=== PATIENT | male | born 1930 | race Caucasian/White ===

== ENCOUNTER 2016-09-22 16:35 | Inpatient (IN) | payer OTHER ==
[2016-09-22 17:43] LABS: BASO% 0.5 % (0.0-0.8); EOS# 0.15 X1000 (0.0-0.7); EOS% 2.4 % (0.0-10.0); HEMATOCRIT 32.9 % (42.0-52.0); HEMOGLOBIN 9.3 g/dL (14.0-18.0); IMM GRAN# 0.02 X1000 (0.0-0.04); IMM GRAN% 0.3 % (0.0-0.5); LYMPH# 0.82 X1000 (1.2-3.4); MANUAL DIFF NEEDED? NO; MCH 26.5 PG (27-31); MCHC 28.3 g/dL (33-37); MCV 93.7 FL (81-99); MONO# 0.82 X1000 (0.11-0.59); MPV 10.7 FL (7.4-10.4); NEUT% 70.8 % (42.2-75.2); PLT 135 X1000 (130-400); RBC 3.51 XMIL (4.7-6.1)
[2016-09-22 17:51] LABS: INR 2.08
[2016-09-22 17:57] LABS: PROTIME 22.2 Seconds (9.2-11.7); PTT 42.9 Seconds (22.0-36.0)
[2016-09-22 18:00] LABS: ALBUMIN 2.7 g/dL (3.5-5.0); CALCIUM 8.4 mg/dL (8.8-10.2); POTASSIUM 3.4 mmol/L (3.5-5.1); TOTAL BILIRUBIN 1.2 mg/dL (0.20-1.00); TOTAL PROTEIN 6.2 g/dL (6.3-8.3)
[2016-09-22 18:29] LABS: ALLEN TEST YES; BLOOD TYPE ARTERIAL; DRAW SITE R RADIAL; METHB 1.3 % (0.0-1.5); O2(CT) 13.1 mL/dL (15.0-23.0); PO2(98.6) 229 mmHg (60-100); SAMPLE BLOOD; SAO2 100.2 % (95.0-100.0); THB 9.2 g/dL (11.5-17.4); pH(98.6) 7.25 (7.35-7.45)
[2016-09-22 18:33] LABS: MODALITY CANNULA
[2016-09-22 18:47] LABS: URINE CULTURE NEEDED? NO; URINE MICRO REVIEW NEEDED? NO; URINE SOURCE CATH
[2016-09-22] MEDS ORDERED: LASIX IV ONE (18:48)
[2016-09-22 18:54] LABS: BILIRUBIN URINE NEGATIVE (NEGATIVE); BLOOD URINE SMALL (NEGATIVE); COLOR YELLOW; GLUCOSE URINE NEGATIVE (NEGATIVE); LEUKOCYTES URINE NEGATIVE (NEGATIVE); NITRITE URINE NEGATIVE (NEGATIVE); PROTEIN URINE TRACE mg/dL (NEGATIVE); SP GRAVITY URINE 1.014; TURBIDITY URINE CLEAR (CLEAR); UROBILINOGEN URINE NORMAL (NORMAL)
[2016-09-22 18:56] LABS: UR EPITHELIAL CELLS <10 /HPF (<10); URINE BACTERIA NEGATIVE /HPF; URINE RBC <10 /HPF (<10); URINE WBC <10 /HPF (<10)
[2016-09-22 19:19] LABS: UR AMPHETAMINES QUAL NONE DETECTED (NONE DETECT); UR BARBITUATES QUAL NONE DETECTED (NONE DETECT); UR BENZODIAZEPIN QUAL PRESUMPTIVE POSITIVE (NONE DETECT); UR CANNABINOIDS QUAL NONE DETECTED (NONE DETECT); UR COCAINE QUAL NONE DETECTED (NONE DETECT); UR METHADONE QUAL NONE DETECTED (NONE DETECT); UR OPIATES QUAL NONE DETECTED (NONE DETECT); UR OXYCODONE QUAL NONE DETECTED (NONE DETECT); UR PCP QUAL NONE DETECTED (NONE DETECT)
--- NOTE | 2016-09-22 19:34 | PROVIDER DOCUMENTATION ---
Addendum entered and electronically signed by Eloisa Rutherford Scribe 09/22/16 22: 38: EKG Interpretation - EKG Time of EKG reading by physician:: 17:21 EKG Read and Signed by:: Andrew Low EKG Interpretation (*Must complete 3 of following elements*): Abnormal Rate: 66 Rhythm: a-fib with PVCs or aberrantly conducted complexes [place]: normal Comments: septal infarct, age underermined Original Note: HPI-General Adult - General Source: family, EMS, correction records Unable to obtain history due to:: altered - History of Present Illness -Gen Adult Nature of Presenting Problems: 86 y/o M referred by EMS from his rehab center after they suspected renal failure. Patient is non-communicative and very distressed. His at bedside stated that his condition has been deteriorating for the last few months. He was diagnosed with Afib and was started on anticoagulants which was complicated with Lower GI bleeding. Anticoagulants were stopped and GI bleeding was treated and patient was sent to rehab afterwards, but his condition has been getting worse since. He has a hx of hemorragic stroke, CHF, CABG, HTN, HLD, Afib and LGIB. Severity: reports: severe Onset/Duration: reports: gradual Timing: reports: still present Context/Activities at Onset: reports: none Associated Symptoms: reports: fatigue, shortness of breath, weakness <Yas Jerome - Last Filed: 09/22/16 19:38> <Eloisa Rutherford - Last Filed: 09/22/16 22:35> - General Chief Complaint: Altered Mental Status Stated Complaint: LETHARGIC Time Seen by Provider: 09/22/16 17:17 Allergies/Adverse Reactions: Patient Allergies Allergy/AdvReac Type Severity Reaction Status Date / Time meperidine HCl * AdvReac Unknown Verified 08/22/16 13:01 [From Demerol] Home Medications: Home Medication List Medication Instructions Recorded Confirmed Last Taken Type Carvedilol [Coreg] 6.25 mg PO BID 11/06/14 09/22/16 09/22/16 History SIMVAstatin [Zocor] 20 mg PO QHS 11/06/14 09/22/16 09/22/16 History Ferrous Sulfate [Iron] 325 mg PO BID 09/07/16 09/22/16 09/22/16 History Aspirin 81 mg PO DAILY #0 chewtab 09/13/16 09/22/16 09/22/16 Rx Cetirizine [Zyrtec] 10 mg PO DAILY #0 tablet 09/13/16 09/22/16 09/22/16 Rx Colchicine [Colcrys] 0.6 mg PO BID #28 tablet 09/13/16 09/22/16 09/22/16 Rx Ferrous Sulfate 325 mg PO BID #0 tablet 09/13/16 09/22/16 09/22/16 Rx Furosemide [Lasix] 80 mg PO BID #60 tablet 09/13/16 09/22/16 09/22/16 Rx Furosemide [Lasix] 80 mg PO BID #60 tablet 09/13/16 09/22/16 09/22/16 Rx Spironolactone [Aldactone] 25 mg PO DAILY #30 tablet 09/13/16 09/22/16 09/22/16 Rx Temazepam [Restoril] 7.5 mg PO HS PRN PRN #15 capsule 09/13/16 09/22/16 Rx Tramadol HCl 50 mg PO TID PRN PRN #45 tablet 09/13/16 09/22/16 09/22/16 Rx Brimonidine 0.2% Ophth Soln 1 drop BOTH EYES DAILY 09/22/16 09/22/16 09/22/16 History [Alphagan 0.2% Ophth Soln] Dorzolamide 2% Oph Soln [Trusopt 1 drop BOTH EYES DAILY 09/22/16 09/22/16 History 2% Oph Soln] Latanoprost 0.005% Oph Soln 1 drop BOTH EYES DAILY 09/22/16 09/22/16 09/22/16 History [Xalatan 0.005% Oph Soln] Review of Systems - Adult - REVIEW OF SYSTEMS - ADULT ROS:: unobtainable per condition (Patient is non-communicable. at bedside was not there when he was in rehab.) <Yas Jerome - Last Filed: 09/22/16 19:38> - REVIEW OF SYSTEMS - ADULT Constitutional: reports: no symptoms reported Eyes: reports: no symptoms reported Ears, Nose, Mouth & Throat: reports: no symptoms reported Cardiovascular: reports: no symptoms reported Respiratory: reports: no symptoms reported Gastrointestinal: reports: no symptoms reported Genitourinary: reports: no symptoms reported Musculoskeletal: reports: no symptoms reported Integumentary: reports: no symptoms reported Neurological: reports: no symptoms reported Psychiatric: reports: no symptoms reported Endocrine: reports: no symptoms reported Hematologic/Lymphatic: reports: no symptoms reported Allergic/Immunologic: reports: no symptoms reported All Other Systems: Reviewed and Negative <Eloisa Rutherford - Last Filed: 09/22/16 22:35> Past History - Adult - PAST MEDICAL HISTORY-ADULT Review of Records: reports: Nursing Assessment Review, Medications Reviewed Major Childhood Illnesses: reports: denies history Cardiovascular: reports: A-Fib, CAD, HTN, hyperlipidemia, pacemaker (and defibrillator) Respiratory: reports: denies history Gastrointestinal: reports: GI bleed Neurological: reports: CVA (with hemmorahage) Endocrine/Immune: reports: Diabetes - PRIOR SURGERIES/PROCEDURES Surgical/Procedure History: reports: appendectomy, cholecystectomy, pacemaker, tonsillectomy - IMMUNIZATION STATUS Childhood Immunizations: See Nurse Assessment Flu Vaccine: See Nurse Assessment - FAMILY HISTORY Family History: reviewed, not pertinent <Yas Jerome - Last Filed: 09/22/16 19:38> Physical Exam-General - CONSTITUTIONAL General Appearance: severe distress, obese, obtunded - EYES Eyes: PERRL/EOMI - HEAD, EARS, NOSE, MOUTH & THROAT HENMT: normocephalic/atraumatic - NECK Neck: supple - RESPIRATORY Respiratory: respiratory distress, accessory muscle use - CARDIOVASCULAR Cardiovascular: regular rate, rhythm - GASTROINTESTINAL (ABDOMEN) Abdominal Exam: non tender, soft - GENITOURINARY Male Genitalia: deferred Rectal Exam: deferred - MUSCULOSKELETAL Extremity: calf tenderness, pedal edema - NEUROLOGIC Neurologic: other (Can't be assessed appropriately) - PSYCHIATRIC Psych/Mental Status: disoriented x 3 <Yas Jerome - Last Filed: 09/22/16 19:38> Progress - PLAN OF CARE/RESULTS Progress/Plan/Lab Results: Vital Signs - 24 hr 09/22/16 09/22/16 09/22/16 16:35 17:35 18:25 Temperature 97.4 F L Pulse Rate 67 57 L 56 L Respiratory 24 20 20 Rate Blood Pressure 104/60 172/101 185/89 O2 Sat by Pulse 96 96 91 L Oximetry Laboratory Tests 09/22/16 09/22/16 09/22/16 17:15 17:15 17:15 WBC 6.32 RBC 3.51 L Hgb 9.3 L Hct 32.9 L MCV 93.7 MCH 26.5 L MCHC 28.3 L RDW Std Deviation 24.6 H Plt Count 135 MPV 10.7 H Immature Gran % (Auto) 0.3 Neut % (Auto) 70.8 Lymph % (Auto) 13.0 L [place] % (Auto) 13.0 H Eos % (Auto) 2.4 Baso % (Auto) 0.5 Immature Gran # (Auto) 0.02 Neut # (Auto) 4.48 Lymph # (Auto) 0.82 L [place] # (Auto) 0.82 H Eos # (Auto) 0.15 Baso # (Auto) 0.03 PT INR PTT (Actin FS) Specimen Type Sample Site pH pCO2 pO2 HCO3 Base Excess Oxyhemoglobin ABG O2 Sat (Calculated) ABG O2 Saturation ABG Carboxyhemoglobin ABG Methemoglobin Fuentes Test A-a O2 Difference Total Hemoglobin Lactate Liter Flow Blood Gas Modality FiO2 % Sodium 145 Potassium 3.4 L Chloride 99 Carbon Dioxide 36 H Anion Gap 10 BUN 43 H Creatinine 2.4 H Estimated GFR/1.73 m2 26 BUN/Creatinine Ratio 18 Glucose 113 H Calculated Osmolality 300 Calcium 8.4 L Total Bilirubin 1.20 H AST 25 ALT 13 Alkaline Phosphatase 84 Creatine Kinase 54 Troponin T Total Protein 6.2 L Albumin 2.7 L Globulin 3.5 Albumin/Globulin Ratio 0.8 Plasma Lactate Urine Source Urine Color Urine Turbidity Urine pH Ur Specific [place] Urine Protein Ur Glucose (Stick) Ur Ketones (Stick) Urine Blood Urine Nitrite Urine Bilirubin Urobilinogen Dipstick Urine Leukocytes Urine WBC (Auto) Urine RBC (Auto) U Epithel Cells (Auto) Urine Bacteria (Auto) Urine Opiates Screen Ur Oxycodone Screen Ur Methadone, Qual Ur Barbiturates Screen Ur Phencyclidine Scrn Ur Amphetamines Screen U Benzodiazepines Scrn Urine Cocaine Screen U Cannabinoids Screen Plasma/Serum Ethyl Alc 09/22/16 09/22/16 09/22/16 17:15 17:15 17:15 WBC RBC Hgb Hct MCV MCH MCHC RDW Std Deviation Plt Count MPV Immature Gran % (Auto) Neut % (Auto) Lymph % (Auto) [place] % (Auto) Eos % (Auto) Baso % (Auto) Immature Gran # (Auto) Neut # (Auto) Lymph # (Auto) [place] # (Auto) Eos # (Auto) Baso # (Auto) PT 22.2 H INR 2.08 PTT (Actin FS) 42.9 H Specimen Type Sample Site pH pCO2 pO2 HCO3 Base Excess Oxyhemoglobin ABG O2 Sat (Calculated) ABG O2 Saturation ABG Carboxyhemoglobin ABG Methemoglobin [place] Test A-a O2 Difference Total Hemoglobin Lactate Liter Flow Blood Gas Modality FiO2 % Sodium Potassium Chloride Carbon Dioxide Anion Gap BUN Creatinine Estimated GFR/1.73 m2 BUN/Creatinine Ratio Glucose Calculated Osmolality Calcium Total Bilirubin AST ALT Alkaline Phosphatase Creatine Kinase Troponin T 0.015 Total Protein Albumin Globulin Albumin/Globulin Ratio Plasma Lactate 1.1 Urine Source Urine Color Urine Turbidity Urine pH Ur Specific [place] Urine Protein Ur Glucose (Stick) Ur Ketones (Stick) Urine Blood Urine Nitrite Urine Bilirubin Urobilinogen Dipstick Urine Leukocytes Urine WBC (Auto) Urine RBC (Auto) U Epithel Cells (Auto) Urine Bacteria (Auto) Urine Opiates Screen Ur Oxycodone Screen Ur Methadone, Qual Ur Barbiturates Screen Ur Phencyclidine Scrn Ur Amphetamines Screen U Benzodiazepines Scrn Urine Cocaine Screen U Cannabinoids Screen Plasma/Serum Ethyl Alc 09/22/16 09/22/16 09/22/16 18:25 18:30 18:30 WBC RBC Hgb Hct MCV MCH MCHC RDW Std Deviation Plt Count MPV Immature Gran % (Auto) Neut % (Auto) Lymph % (Auto) [place] % (Auto) Eos % (Auto) Baso % (Auto) Immature Gran # (Auto) Neut # (Auto) Lymph # (Auto) [place] # (Auto) Eos # (Auto) Baso # (Auto) PT INR PTT (Actin FS) Specimen Type ARTERIAL Sample Site R RADIAL pH 7.25 L pCO2 pO2 229 H HCO3 34.3 H Base Excess 12.0 H Oxyhemoglobin 96.5 ABG O2 Sat (Calculated) 13.1 L ABG O2 Saturation 100.2 H ABG Carboxyhemoglobin 2.40 ABG Methemoglobin 1.3 Fuentes Test YES A-a O2 Difference -34.0 Total Hemoglobin 9.2 L Lactate 0.80 Liter Flow 6.0 Blood Gas Modality CANNULA FiO2 % 44.0 Sodium Potassium Chloride Carbon Dioxide Anion Gap BUN Creatinine Estimated GFR/1.73 m2 BUN/Creatinine Ratio Glucose Calculated Osmolality Calcium Total Bilirubin AST ALT Alkaline Phosphatase Creatine Kinase Troponin T Total Protein Albumin Globulin Albumin/Globulin Ratio Plasma Lactate Urine Source CATH Urine Color YELLOW Urine Turbidity CLEAR Urine pH 5.0 Ur Specific [place] 1.014 Urine Protein TRACE A Ur Glucose (Stick) NEGATIVE Ur Ketones (Stick) NEGATIVE Urine Blood SMALL A Urine Nitrite NEGATIVE Urine Bilirubin NEGATIVE Urobilinogen Dipstick NORMAL Urine Leukocytes NEGATIVE Urine WBC (Auto) <10 Urine RBC (Auto) <10 U Epithel Cells (Auto) <10 Urine Bacteria (Auto) NEGATIVE Urine Opiates Screen NONE DETECTED Ur Oxycodone Screen NONE DETECTED Ur Methadone, Qual NONE DETECTED Ur Barbiturates Screen NONE DETECTED Ur Phencyclidine Scrn NONE DETECTED Ur Amphetamines Screen NONE DETECTED U Benzodiazepines Scrn PRESUMPTIVE POSITIVE A Urine Cocaine Screen NONE DETECTED U Cannabinoids Screen NONE DETECTED Plasma/Serum Ethyl Alc - REASSESSMENT Reassessment #1 Time Reassessed: 18:30 Status: unchanged Reassessment Comment: Patient was started on Bipap 12/5/40% for respiratory acidosis - XRAY 1 XRAY Study: Chest Impression: Abnormal (Cardiomegaly- Left pleural effusion - PM placed) - CT/MRI 1 CT Study: Head Impression: Abnormal (No acute pathology. No change from previous CT.) <Yas Jerome. - Last Filed: 09/22/16 19:38> - PLAN OF CARE/RESULTS Progress/Plan/Lab Results: Orders Category Date Time Status Cardiac Monitoring DIRECTED Care 09/22/16 17:28 Active Finger Stick Blood Sugar (ED) DIRECTED Care 09/22/16 17:28 Active Ospina Cath Insertion ORDERED Care 09/22/16 18:18 Active Oxygen Therapy- ED Nursing DIRECTED Care 09/22/16 17:28 Active Saline Loc NOW Care 09/22/16 17:28 Active CHEST-PORTABLE [RAD] Stat Exams 09/22/16 17:28 Taken HEAD W/O CONTRAST [CT] Stat Exams 09/22/16 17:28 Taken ABG [RESP] Routine Lab 09/22/16 18:25 Completed ALCOHOL BLOOD Stat Lab 09/22/16 17:15 Completed CBC WITH ELECTRONIC DIFF [HEME] Stat Lab 09/22/16 17:15 Completed CK PROFILE [SP CHEM] Stat Lab 09/22/16 17:15 Completed COMPREHENSIVE METABOLIC PANEL [CHEM] Stat Lab 09/22/16 17:15 Completed LACTATE, PLASMA [CHEM] Stat Lab 09/22/16 17:15 Completed PROTIME WITH INR [COAG] Stat Lab 09/22/16 17:15 Completed PTT [COAG] Stat Lab 09/22/16 17:15 Completed TROPONIN T Stat Lab 09/22/16 17:15 Completed URINALYSIS W/POSS RFLX CULT [URINALYSIS] Stat Lab 09/22/16 18:30 Completed URINE DRUG SCREEN Stat Lab 09/22/16 18:30 Completed Furosemide [Lasix] Med 09/22/16 18:48 Discontinued 60 mg IV NOW ONE BIPAP Stat Oth 09/22/16 18:48 Active Pulse Oximetry Stat Oth 09/22/16 17:28 Completed EKG [EKG] Stat Ther 09/22/16 17:28 Ordered Laboratory Tests 09/22/16 09/22/16 09/22/16 17:15 17:15 17:15 WBC 6.32 RBC 3.51 L Hgb 9.3 L Hct 32.9 L MCV 93.7 MCH 26.5 L MCHC 28.3 L RDW Std Deviation 24.6 H Plt Count 135 MPV 10.7 H Immature Gran % (Auto) 0.3 Neut % (Auto) 70.8 Lymph % (Auto) 13.0 L [place] % (Auto) 13.0 H Eos % (Auto) 2.4 Baso % (Auto) 0.5 Immature Gran # (Auto) 0.02 Neut # (Auto) 4.48 Lymph # (Auto) 0.82 L [place] # (Auto) 0.82 H Eos # (Auto) 0.15 Baso # (Auto) 0.03 PT INR PTT (Actin FS) Specimen Type Sample Site pH pCO2 pO2 HCO3 Base Excess Oxyhemoglobin ABG O2 Sat (Calculated) ABG O2 Saturation ABG Carboxyhemoglobin ABG Methemoglobin [place] Test A-a O2 Difference Total Hemoglobin Lactate Liter Flow Blood Gas Modality FiO2 % Sodium 145 Potassium 3.4 L Chloride 99 Carbon Dioxide 36 H Anion Gap 10 BUN 43 H Creatinine 2.4 H Estimated GFR/1.73 m2 26 BUN/Creatinine Ratio 18 Glucose 113 H POC Glucose Calculated Osmolality 300 Calcium 8.4 L Total Bilirubin 1.20 H AST 25 ALT 13 Alkaline Phosphatase 84 Creatine Kinase 54 Troponin T Total Protein 6.2 L Albumin 2.7 L Globulin 3.5 Albumin/Globulin Ratio 0.8 Plasma Lactate Urine Source Urine Color Urine Turbidity Urine pH Ur Specific [place] Urine Protein Ur Glucose (Stick) Ur Ketones (Stick) Urine Blood Urine Nitrite Urine Bilirubin Urobilinogen Dipstick Urine Leukocytes Urine WBC (Auto) Urine RBC (Auto) U Epithel Cells (Auto) Urine Bacteria (Auto) Urine Opiates Screen Ur Oxycodone Screen Ur Methadone, Qual Ur Barbiturates Screen Ur Phencyclidine Scrn Ur Amphetamines Screen U Benzodiazepines Scrn Urine Cocaine Screen U Cannabinoids Screen Plasma/Serum Ethyl Alc 09/22/16 09/22/16 09/22/16 17:15 17:15 17:15 WBC RBC Hgb Hct MCV MCH MCHC RDW Std Deviation Plt Count MPV Immature Gran % (Auto) Neut % (Auto) Lymph % (Auto) [place] % (Auto) Eos % (Auto) Baso % (Auto) Immature Gran # (Auto) Neut # (Auto) Lymph # (Auto) [place] # (Auto) Eos # (Auto) Baso # (Auto) PT 22.2 H INR 2.08 PTT (Actin FS) 42.9 H Specimen Type Sample Site pH pCO2 pO2 HCO3 Base Excess Oxyhemoglobin ABG O2 Sat (Calculated) ABG O2 Saturation ABG Carboxyhemoglobin ABG Methemoglobin Fuentes Test A-a O2 Difference Total Hemoglobin Lactate Liter Flow Blood Gas Modality FiO2 % Sodium Potassium Chloride Carbon Dioxide Anion Gap BUN Creatinine Estimated GFR/1.73 m2 BUN/Creatinine Ratio Glucose POC Glucose Calculated Osmolality Calcium Total Bilirubin AST ALT Alkaline Phosphatase Creatine Kinase Troponin T 0.015 Total Protein Albumin Globulin Albumin/Globulin Ratio Plasma Lactate 1.1 Urine Source Urine Color Urine Turbidity Urine pH Ur Specific [place] Urine Protein Ur Glucose (Stick) Ur Ketones (Stick) Urine Blood Urine Nitrite Urine Bilirubin Urobilinogen Dipstick Urine Leukocytes Urine WBC (Auto) Urine RBC (Auto) U Epithel Cells (Auto) Urine Bacteria (Auto) Urine Opiates Screen Ur Oxycodone Screen Ur Methadone, Qual Ur Barbiturates Screen Ur Phencyclidine Scrn Ur Amphetamines Screen U Benzodiazepines Scrn Urine Cocaine Screen U Cannabinoids Screen Plasma/Serum Ethyl Alc 09/22/16 09/22/16 09/22/16 17:47 18:25 18:30 WBC RBC Hgb Hct MCV MCH MCHC RDW Std Deviation Plt Count MPV Immature Gran % (Auto) Neut % (Auto) Lymph % (Auto) [place] % (Auto) Eos % (Auto) Baso % (Auto) Immature Gran # (Auto) Neut # (Auto) Lymph # (Auto) [place] # (Auto) Eos # (Auto) Baso # (Auto) PT INR PTT (Actin FS) Specimen Type ARTERIAL Sample Site R RADIAL pH 7.25 L pCO2 pO2 229 H HCO3 34.3 H Base Excess 12.0 H Oxyhemoglobin 96.5 ABG O2 Sat (Calculated) 13.1 L ABG O2 Saturation 100.2 H ABG Carboxyhemoglobin 2.40 ABG Methemoglobin 1.3 Fuentes Test YES A-a O2 Difference -34.0 Total Hemoglobin 9.2 L Lactate 0.80 Liter Flow 6.0 Blood Gas Modality CANNULA FiO2 % 44.0 Sodium Potassium Chloride Carbon Dioxide Anion Gap BUN Creatinine Estimated GFR/1.73 m2 BUN/Creatinine Ratio Glucose POC Glucose 121 H Calculated Osmolality Calcium Total Bilirubin AST ALT Alkaline Phosphatase Creatine Kinase Troponin T Total Protein Albumin Globulin Albumin/Globulin Ratio Plasma Lactate Urine Source CATH Urine Color YELLOW Urine Turbidity CLEAR Urine pH 5.0 Ur Specific [place] 1.014 Urine Protein TRACE A Ur Glucose (Stick) NEGATIVE Ur Ketones (Stick) NEGATIVE Urine Blood SMALL A Urine Nitrite NEGATIVE Urine Bilirubin NEGATIVE Urobilinogen Dipstick NORMAL Urine Leukocytes NEGATIVE Urine WBC (Auto) <10 Urine RBC (Auto) <10 U Epithel Cells (Auto) <10 Urine Bacteria (Auto) NEGATIVE Urine Opiates Screen Ur Oxycodone Screen Ur Methadone, Qual Ur Barbiturates Screen Ur Phencyclidine Scrn Ur Amphetamines Screen U Benzodiazepines Scrn Urine Cocaine Screen U Cannabinoids Screen Plasma/Serum Ethyl Alc 09/22/16 18:30 WBC RBC Hgb Hct MCV MCH MCHC RDW Std Deviation Plt Count MPV Immature Gran % (Auto) Neut % (Auto) Lymph % (Auto) [place] % (Auto) Eos % (Auto) Baso % (Auto) Immature Gran # (Auto) Neut # (Auto) Lymph # (Auto) [place] # (Auto) Eos # (Auto) Baso # (Auto) PT INR PTT (Actin FS) Specimen Type Sample Site pH pCO2 pO2 HCO3 Base Excess Oxyhemoglobin ABG O2 Sat (Calculated) ABG O2 Saturation ABG Carboxyhemoglobin ABG Methemoglobin Fuentes Test A-a O2 Difference Total Hemoglobin Lactate Liter Flow Blood Gas Modality FiO2 % Sodium Potassium Chloride Carbon Dioxide Anion Gap BUN Creatinine Estimated GFR/1.73 m2 BUN/Creatinine Ratio Glucose POC Glucose Calculated Osmolality Calcium Total Bilirubin AST ALT Alkaline Phosphatase Creatine Kinase Troponin T Total Protein Albumin Globulin Albumin/Globulin Ratio Plasma Lactate Urine Source Urine Color Urine Turbidity Urine pH Ur Specific [place] Urine Protein Ur Glucose (Stick) Ur Ketones (Stick) Urine Blood Urine Nitrite Urine Bilirubin Urobilinogen Dipstick Urine Leukocytes Urine WBC (Auto) Urine RBC (Auto) U Epithel Cells (Auto) Urine Bacteria (Auto) Urine Opiates Screen NONE DETECTED Ur Oxycodone Screen NONE DETECTED Ur Methadone, Qual NONE DETECTED Ur Barbiturates Screen NONE DETECTED Ur Phencyclidine Scrn NONE DETECTED Ur Amphetamines Screen NONE DETECTED U Benzodiazepines Scrn PRESUMPTIVE POSITIVE A Urine Cocaine Screen NONE DETECTED U Cannabinoids Screen NONE DETECTED Plasma/Serum Ethyl Alc Vital Signs - 24 hr 09/22/16 09/22/16 09/22/16 16:35 17:35 18:25 Temperature 97.4 F L Pulse Rate 67 57 L 56 L Respiratory 24 20 20 Rate Blood Pressure 104/60 172/101 185/89 O2 Sat by Pulse 96 96 91 L Oximetry 09/22/16 20:23 Temperature Pulse Rate 69 Respiratory 22 Rate Blood Pressure 83/61 O2 Sat by Pulse 100 Oximetry Pt/family given results. Pt will be admitted to the hospitalist group. PT/ Family in agreement with plan of care. - CONSULTS/PCP/HOSPITALIST Notification #1 *Consult/PCP/Hospitalist*: Dr. Gonsalves Time Discussed: 20:49 Consult Disposition: Will see in ED, Admit <Eloisa Rutherford - Last Filed: 09/22/16 22:35> Departure <Yas Jerome - Last Filed: 09/22/16 19:38> - Departure Time of Disposition Order: 21:31 Certified Medical Emergency: Emergent <Eloisa Rutherford - Last Filed: 09/22/16 22:35> - Departure DIAGNOSIS: Generalized weakness Disposition: ADMITTED INPATIENT 09 Condition: Stable Attestation - Scribe Verification/Attestation #2 Shift Change Time: 19:00 Scribe Name: KrishEloisa Acting as Scribe for:: Andrew Low <Eloisa Rutherford - Last Filed: 09/22/16 22:35> Physician Attestation - Physician Attestation I, the provider, attest to the following statement:: Andrew Low Physician documentation Attestation:: This documentation recorded by the scribe accurately reflects the service I personally performed and the decisions made by me. <Eloisa Rutherford - Last Filed: 09/22/16 22:35>
[2016-09-22] MEDS ORDERED: KLOR-CON PO ONE (21:59)
[2016-09-22] MEDS ORDERED: HUMALOG SUBQ ONE (22:14)
--- NOTE | 2016-09-22 23:01 | HISTORY AND PHYSICAL ---
REFERRING PHYSICIAN: Roddy Rodríguez MD REASON FOR ADMISSION: Progressive weakness and confusion for the last 3-4 days. HISTORY OF PRESENT ILLNESS: Mr. Eduardo Nielsen is an 86-year-old man with past medical history of chronic atrial fibrillation, coronary artery disease, chronic diastolic congestive heart failure, hypertension, peripheral artery disease, type 2 diabetes, stage 3 kidney disease, gout, history of prior hemorrhagic stroke with mild residual dementia, obstructive sleep apnea. He has a defibrillator and pacemaker placed because of atrial fibrillation. [facility] on account of progressive weakness for the last 3-4 days and worsening confusion for the last 2 days. 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 Since he has been at the rehab facility, he has been having intermittent diarrhea which has been persistent up until today. The diarrhea is nonbloody, but the initially thought that this was secondary to iron tablets prescribed by Dr. Rodríguez, but since they withheld his iron tablets, he is still having the diarrhea. is not sure if he has had any recent antibiotic exposure or any contact with anybody with any diarrhea. She has noticed that he has become a little more lethargic and weak and has been unable to undergo any physical therapy. Patient is a very poor historian due to the fact that he is very lethargic and confused at this point in time. He will follow basic commands, however. No genitourinary complaints per the and no hematuria noted. No acute shortness of breath reported by the patient or chest pain by the patient. His reports that he has chronic lower extremity swelling, but no more than usual. No nausea or vomiting reported. REVIEW OF SYSTEMS: Twelve system review is negative, but limited due to the fact that the patient is confused. ALLERGIES: He is allergic to Demerol and erythromycin. SURGICAL HISTORY: Two coronary artery bypass surgeries. Pacemaker and defibrillator replacement. CEA on the right side. Appendectomy and cholecystectomy. FAMILY HISTORY: Patient was an only child and mother had brain cancer. Dad did not have any heart disease or diabetes per the . SOCIAL HISTORY: He is not actively smoking, stopped in . Does not drink alcohol or use any recreational drugs. He is . Currently residing at a rehab facility i.[facility]. HOME MEDICATION: Coreg 6.25 b.i.d. Zocor 20 mg at bedtime. Iron 225 mg b.i.d. Brimonidine ophthalmic solution 0.2%, 1 drop to both eyes. Dorzolamide 1 drop to both eyes. Latanoprost or i.e. Xalatan 1 drop to both eyes. Restoril 7.5 mg at bedtime p.r.n. Tramadol 50 mg t.i.d. Aldactone 25 mg daily. Aspirin 81 mg daily. Colchicine 0.6 mg b.i.d. Ferrous sulfate 325 mg b.i.d. Lasix 80 mg b.i.d. Zyrtec 10 mg daily. LABORATORY WORK/RADIOLOGY: Chest x-ray shows left pleural effusion with cardiomegaly. CT head was negative for any acute process. White count 6000, hemoglobin and hematocrit 9 and 32. Platelets 135,000. Potassium 3.4, BUN 43, creatinine 2.4, glucose 113. Calcium 8.4, total bilirubin 1.2, troponin 0.5. Lactate 1.1. Albumin 2.7. PT 22, INR 2, PTT 42, urine drug screen positive for benzodiazepines. Urinalysis: Small blood, trace protein. Arterial blood gases 7.25, pCO2 95, PO2 229. And this was on 44% nasal cannula. PHYSICAL EXAMINATION: GENERAL: Elderly man who is alert, but confused. His speech is very whispery, very difficult to hear. VITAL SIGNS: His blood pressure is 185/89, heart rate 66, respirations 20, temperature is 97.4 degrees, and is on 3 L. HEENT: Head is normocephalic, atraumatic. Eyes [place], EOMI. He is calm, not anxious. He is anicteric and not pale. ENT and oropharyngeal examination is limited due to the fact the patient is a BiPAP mask, but visually, no central cyanosis. NECK: No visible JVD. No bruit or thyromegaly. Positive hepatojugular reflux. CHEST: Decreased air entry in both lung levin with questionable scattered wheezes. CARDIOVASCULAR: First and second heart sounds heard. No gallops, murmurs, rubs. Rhythm is regular. ABDOMEN: Protuberant, soft. Mild diffuse tenderness noted, but no rebound or guarding. Bowel sounds are hypoactive. RECTAL: Not done at this time. EXTREMITIES: Patient has noticeable bilateral xerosis of both feet with 1+ pitting edema. Pulses distally are diminished in the lower extremity, but symmetrical compared to the upper extremity. No clubbing or peripheral cyanosis. NEUROLOGICAL: The patient has fine tremors in his hands. No myoclonus noted. No focal deficits appreciated. SKIN: See above regarding xerosis of the lower extremities. MUSCULAR: Exam otherwise is within normal limits. ASSESSMENT: 1. Metabolic encephalopathy secondary to uremia and hypercapnia. 2. Acute on chronic respiratory failure with hypercapnia. 3. Acute on chronic kidney disease. 4. Anemia multifactorial i.e. combination of underlying kidney disease plus pre-existing hemorrhagic anemia from recent gastrointestinal bleed. 5. Subacute diarrhea, etiology to be determined. Rule out infectious etiology. Clostridium difficile toxin is pending. 6. Chronic diastolic heart failure. Appears to be stable. 7. Coronary artery disease. 8. Chronic atrial fibrillation. 9. Hypertension. 10. Peripheral artery disease. 11. Type 2 diabetes. 12. Gouty arthritis. PLAN: I suspect patient's acute on chronic renal failure could be secondary to several factors, namely poor oral intake, excessive diuresis in the face of poor oral intake, use of nephrotoxic medications i.e. diuretics and colchicine with ongoing diarrhea. We will withhold intravenous fluid resuscitation, discontinue diuretics and see how his renal function progresses. If it continues to progress in a downward trend, we will consider cautious use of intravenous fluids. Stool studies need to be evaluated in this patient to be sure he does not have Clostridium difficile. If this is negative, then we can administer antidiarrheals to decrease further fluid losses. Regarding patient's hypercapnia, patient will be on a BiPAP. He does have prior history of sleep apnea by the way. We will check an arterial blood gases later today and consult certification engineer to see. He possibly may have a component of subclinical chronic obstructive pulmonary disease and I have started him on breathing treatments. The patient has been made Do Not Resuscitate due to his overall poor prognosis. I have ordered an anemia workup to see if he may benefit from intravenous iron as the is concerned that oral iron may have triggered his poor oral intake and caused his diarrhea which I find somewhat unusual. Also of note, patient also has some degree of coagulopathy. I do not see any Coumadin on board for this patient, even in his prior history and physical. I do think I will stop his aspirin and avoid any heparinoids products for deep venous thrombosis prophylaxis and use Sequential Compression Devices in place. Repeat ProTime in the a.m. and if it is high then we need to consider possibility of vitamin K deficiency from possible chronic antibiotic use and try to give the patient vitamin K supplementation if this is still elevated. Regarding his diabetes, we will put him on a low sliding scale. Check his A1c.
[2016-09-22] MEDS ORDERED: TYLENOL PO PRN (23:24)
[2016-09-22] MEDS ORDERED: ZOFRAN IV PRN (23:24)
[2016-09-22] MEDS: DUONEB (A & A) INH SCH (23:44)
[2016-09-23 00:03] LABS: HEMOGLOBIN A1C 5.5 % (4.8-6.0)
[2016-09-23] MEDS: DUONEB (A & A) INH SCH ×4 (03:57→19:28)
[2016-09-23 04:24] LABS: ALLEN TEST YES; BLOOD TYPE ARTERIAL; DRAW SITE R RADIAL; METHB 1.4 % (0.0-1.5); PO2(98.6) 91 mmHg (60-100); SAMPLE BLOOD; SAO2 98.7 % (95.0-100.0); THB 9.6 g/dL (11.5-17.4); pH(98.6) 7.36 (7.35-7.45)
[2016-09-23 04:25] LABS: PCO2(98.6) 68 mmHg (35-45)
[2016-09-23 04:26] LABS: MODALITY BI PAP
--- NOTE | 2016-09-23 05:27 | EKG Report ---
Test Performed on : 09/22/2016 5:21:18 PM Test Reason : AMS Blood Pressure : / mmHG Vent. Rate : 066 BPM Atrial Rate : 043 BPM P-R Int : 000 ms QRS Dur : 112 ms QT Int : 456 ms P-R-T Axes : 000 046 099 degrees QTc Int : 478 ms Atrial fibrillation. with premature ventricular or aberrantly conducted complexes. Septal infarct , age undetermined Abnormal ECG No previous ECGs available Unconfirmed Result
[2016-09-23 05:33] LABS: INR 2.18; PROTIME 23.3 Seconds (9.2-11.7)
[2016-09-23 05:38] LABS: BASO% 0.8 % (0.0-0.8); EOS# 0.22 X1000 (0.0-0.7); EOS% 3.6 % (0.0-10.0); HEMATOCRIT 30.5 % (42.0-52.0); HEMOGLOBIN 8.6 g/dL (14.0-18.0); IMM GRAN# 0.04 X1000 (0.0-0.04); IMM GRAN% 0.6 % (0.0-0.5); LYMPH# 0.75 X1000 (1.2-3.4); LYMPH% 12.2 % (20.5-51.1); MANUAL DIFF NEEDED? NO; MCH 26.1 PG (27-31); MCHC 28.2 g/dL (33-37); MCV 92.4 FL (81-99); MONO# 0.83 X1000 (0.11-0.59); MONO% 13.5 % (1.7-9.3); MPV 11.4 FL (7.4-10.4); NEUT% 69.3 % (42.2-75.2); PLT 134 X1000 (130-400)
[2016-09-23 06:03] LABS: ALBUMIN 2.3 g/dL (3.5-5.0); CALCIUM 8.4 mg/dL (8.8-10.2); POTASSIUM 3.3 mmol/L (3.5-5.1); TOTAL BILIRUBIN 1.41 mg/dL (0.20-1.00); TOTAL PROTEIN 5.9 g/dL (6.3-8.3)
--- NOTE | 2016-09-23 08:27 | Diag Imaging Result Document ---
PROCEDURE NAME: HEAD W/O CONTRAST - 09/22/2016 CT HEAD WITHOUT CONTRAST: COMPARISON: 08/22/2016. FINDINGS: There is extensive patchy low attenuation in the periventricular and subcortical white matter suggesting microangiopathy, stable. There is stable left frontal encephalomalacia. There is no definite acute infarct given the limited sensitivity of CT versus MRI. There is no discrete intracranial mass, mass effect, or intracranial hemorrhage. There is stable diffuse brain atrophy. The surrounding soft tissues and bony structures are essentially unremarkable. IMPRESSION: Stable chronic changes but no evidence of acute intracranial pathology.
[2016-09-23] MEDS: FERROUS SULFATE PO SCH (08:34)
[2016-09-23] MEDS: COREG PO SCH ×2 (08:34→21:15)
[2016-09-23] MEDS: ALPHAGAN 0.2% OPHTH SOLN BOTH EYES SCH (08:34)
[2016-09-23] MEDS: TRUSOPT 2% OPH SOLN BOTH EYES SCH (08:35)
--- NOTE | 2016-09-23 08:37 | Diag Imaging Result Document ---
PROCEDURE NAME: CHEST-1 VIEW - 09/23/2016 PORTABLE CHEST X-RAY: COMPARISON: 09/22/2016. FINDINGS: Stable pacemaker and cardiomegaly. Stable pulmonary vascular congestion. No obvious infiltrates. There are probably pleural effusions. IMPRESSION: No change from prior.
[2016-09-23] MEDS ORDERED: XALATAN 0.005% OPH SOLN BOTH EYES SCH (09:00)
--- NOTE | 2016-09-23 09:21 | Diag Imaging Result Document ---
PROCEDURE NAME: CHEST-PORTABLE - 09/22/2016 PORTABLE CHEST X-RAY: 09/22/2016. COMPARISON: 09/11/2016. FINDINGS: Stable pacemaker. Stable cardiomegaly. Stable pulmonary vascular congestion. There are bilateral pleural effusions, left greater than right. IMPRESSION: No change from prior.
[2016-09-23] MEDS ORDERED: NS 500 ML IV ONE (09:30)
[2016-09-23] MEDS ORDERED: VITAMIN K 10 MG in NS 50 ML IV ONE (10:00)
[2016-09-23 10:35] LABS: PCO2(98.6) 95 mmHg (35-45)
[2016-09-23 10:39] LABS: ALLEN TEST YES; BE 11.4 mmoll (-3.0-3.0); BLOOD TYPE ARTERIAL; DRAW SITE R RADIAL; METHB 1.8 % (0.0-1.5); O2(CT) 11.8 mL/dL (15.0-23.0); PO2(98.6) 157 mmHg (60-100); SAMPLE BLOOD; SAO2 99.8 % (95.0-100.0); THB 8.5 g/dL (11.5-17.4); pH(98.6) 7.29 (7.35-7.45)
[2016-09-23 10:40] LABS: MODALITY CANNULA; PCO2(98.6) 83 mmHg (35-45)
--- NOTE | 2016-09-23 12:28 | CONSULTATION ---
DATE OF CONSULTATION: 09/23/2016 PHYSICIAN REQUESTING CONSULTATION: Roddy Rodríguez MD REASON FOR CONSULTATION: Patient with known coronary artery disease presenting to the hospital with suspected gastrointestinal bleeding and mental status changes. HISTORY OF PRESENT ILLNESS: Mr. Nielsen is an unfortunate 86-year-old male who carries the diagnosis of coronary artery disease. He was admitted to [facility] on 09/07/2016 through 09/13/2016 after being found to have gastrointestinal bleeding. Of note , a few days prior to that the patient had suffered an episode of a shock delivered by his ICD device on 08/22/2016. At that time he fell on the floor, however, he did not lose consciousness. The patient at any rate was admitted on 09/07/2016. He was seen by Dr. Wilson from the gastroenterology service and they on 09/09/2016 proceeded to perform an endoscopy with the finding of an arteriovenous malformation that was bleeding and it was treated. The patient was discharged to [facility] on 09/13/2016. He has been staying there up until yesterday. Yesterday, he was brought to the hospital emergency room at about 7:00 p.m. because he appeared to be very restless, he appeared to be in some distress, and he was nonverbal. The patient has been admitted for further management. He was found to have elevation of his pCO2 on blood gases; it was 95 and pH was 7.27 and pO2 229. His BUN was up to 43 with creatinine of 2.4. Before his discharge his BUN was 22 and his creatinine was 1.5. He also had a chest x-ray on 09/22/2016 indicating bilateral pleural effusions, left greater than right. Additional blood work includes a troponin level that was checked and is negative. The patient at this time is nonverbal. He is moaning some, when one touches his knees they are somewhat sore to touch. The patient carries the diagnosis of gout. The states that he has not experienced any recent change in his cardiac status. He has some chronic mild puffiness of the ankles. He normally does not complain of chest pain. He denies having palpitations. PAST MEDICAL/SURGICAL HISTORY: His past history is positive for severe coronary artery disease. He has had open heart surgery twice; the last time was done in October of 1995 and consisted of a free right mammary artery to the marginal branch of the circumflex and the OLSON to the LAD performed by Dr. Salter in [place]. Subsequently he had a heart cath in June of [address] Plascencia that showed a stenosis of the marginal branch beyond the anastomosis of the mammary graft and he proceeded to perform a stent. He had a follow-up PET scan in January of [address] Valladares as abnormal indicating a mid anterolateral and apical anterior scar without evidence of ischemia. His ejection fraction could not be calculated at that time because of ventricular ectopy. The last time he was seen by Dr. Gregorio, who is his usual personalized living manager, was in January of 2016 and at that time he appeared to be stable. The patient has chronic atrial fibrillation and he has been on long-term anticoagulation with warfarin, however, due to the episode of gastrointestinal bleeding this has been discontinued. The patient had a previous episode of a catastrophic intracranial bleed in 1998 that required ventriculostomy /craniotomy. Since then his memory was affected. He has a history of being a borderline diabetic. He has had deep venous thrombosis in the past. He carries the diagnosis of sleep apnea syndrome. He has been obese with a body mass index of 37. He has been diagnosed with gout and this has affected recently his left hand requiring colchicine. He has had an appendectomy, cholecystectomy, and tonsillectomy. The patient has also had a carotid endarterectomy in the past. SOCIAL HISTORY: He is to his second of 22 years. He has 2 children. He is not a smoker. He quit smoking several years ago. 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 He was very good at [employer]. FAMILY HISTORY: Noncontributory. HOME MEDICATIONS: His home medications at this time include aspirin 81 mg daily , tramadol 50 mg three times a day, temazepam 7.5 at bedtime, spironolactone 25 mg daily, simvastatin 20 mg at bedtime, furosemide 80 mg twice a day, ferrous sulfate 325 mg twice a day, eye drops dorzolamide or Trusopt one drop to both eyes daily, colchicine 0.6 mg twice a day, Zyrtec 10 mg daily, and carvedilol 6.25 mg twice daily. ALLERGIES: He has allergies to meperidine. REVIEW OF SYSTEMS: Basically positive for poor functional capacity. He walks with a walker barely. He lives at the [facility] with his and since his recent episode of gastrointestinal bleeding he has been at [facility]. He has never tolerated wearing a CPAP mask. PHYSICAL EXAMINATION: VITAL SIGNS: Blood pressure is 122/59, pulse 60, temperature 98.1, and respirations 14. GENERAL: He is obtunded. He does not wake up to commands. He moans when one touches his joints. HEENT: I cannot really see the uvula veins. I do not hear bruits. RESPIRATORY: The chest shows diminished breath sounds at the bases. I do not hear any definite rales. Occasional end-expiratory wheezing. CARDIOVASCULAR: Heart sounds are regular rhythmic. No definite gallop or murmur is noted. ABDOMEN: Obese. No hepatomegaly. Slightly distended. Nontender. EXTREMITIES: Extreme dryness of both feet/swelling, brawny edema. Pulses are diminished. NEUROLOGICAL: He is very obtunded and does not follow commands. He is somewhat flaccid. LABORATORY DATA: Sodium is 146, potassium 3.3, BUN 44, and creatinine 2.3. White count is 6,160 and hemoglobin 8.6. IMPRESSION: 1. Patient presented to the hospital because of mental status changes with hypercarbic respiratory failure and evidence of dehydration with acute renal dysfunction. 2. Patient has a history of severe coronary artery disease with previous vessel bypass in 1998 with subsequent stent to the marginal branch of the circumflex in 2007. 3. History of chronic atrial fibrillation on long-term anticoagulation with controlled rate. 4. History of implantable cardioverter defibrillator implantation with a recent episode of ventricular fibrillation from which he was successfully shocked in August of 2016. 5. Status-post carotid endarterectomy. 6. Anemia and recent gastrointestinal bleeding. RECOMMENDATION: From a cardiology viewpoint at this time I do not have any specific recommendations. The patient really needs to be given general medical care to optimize his electrolytes and his respiratory status. From cardiology I really do not have any specific therapeutic intervention to suggest. We will be available if there is any change that really warrants our intervention. Please call us if we can be of any further assistance. [facility]
[2016-09-23] MEDS: VANCOMYCIN ORAL SOLN PO SCH ×3 (12:37→21:13)
--- NOTE | 2016-09-23 12:41 | CONSULTATION ---
DATE OF CONSULTATION: 09/23/2016 CONCLUSIONS: The patient has a 3-week history of diarrhea. According to his , it started after he received an iron infusion, and he was in either a rehab facility or the hospital. The patient's stool for Clostridium difficile toxin is negative. RECOMMENDATIONS: I have ordered stools for ova and parasites and for culture. Pending these results, I have placed the patient on vancomycin, even though his stool for Clostridium difficile toxin is negative. DISCUSSION: The patient is unable to provide a history; the history was taken from the patient's . The patient had been in rehab and develops diarrhea that has been present according to the patient's for 3 weeks. He has gotten progressively weaker to the point that he can barely talk. He can barely move his arms and legs. The history was taken from the as the patient was not strong enough to answer. His studies thus far show a CBC with a white count of 6160, hemoglobin 8.6 and platelet count 134,000. The arterial blood gases show a pH of 7.36, a PO2 of 91 and a pCO2 of 68. Patient's creatinine is 2.3. The GFR is 27. Liver function studies are normal, except for a bilirubin of 1.41. Stool for Clostridium difficile toxin is negative. CT scan of the head showed no acute disease. Chest x-ray shows the patient has a pacemaker, cardiomegaly, and pulmonary venous congestion with probable pleural effusions. The patient's told me that the Imodium and Lomotil had been tried on the patient, but it did not seem to help his diarrhea. PAST MEDICAL HISTORY/REVIEW OF SYSTEMS: The review of systems was taken from the patient's .Eyes and ears: The patient did not have loss of hearing or vision. Neck: No stiffness. Respiratory: No cough or shortness of breath. Cardiovascular: No chest pain or palpitations. GI: As mentioned above, patient has been having diarrhea for 3 weeks now. He is not having nausea or vomiting. The patient also had a loss of appetite in the past 2-3 weeks. Genitourinary: No history of dysuria or flank pain. Neurologic: The patient is very weak. He can barely speak and, when he did try to speak now no words came out. In the past according to the the patient was active; he did walk, but required the use of a walker. The remainder of the review of systems was completed and was negative. SURGICAL HISTORY: Positive for coronary artery bypass surgery, placement of a combination pacemaker and defibrillator. Carotid end arterectomy, on the right side. Appendectomy, cholecystectomy and extraction of all the patient's teeth. MEDICAL DISEASES: Positive for atrial fibrillation, coronary artery disease, congestive heart failure, hypertension, peripheral arterial disease, diabetes mellitus, stage III kidney disease, gout, prior hemorrhagic stroke with mild residual dementia, obstructive sleep apnea, placement of a combination defibrillator and pacemaker occurred because of the patient's atrial fibrillation. ALLERGIES: Patient's chart lists only an allergy to Demerol. HOME MEDICATIONS: Consist of the following: Tramadol, Restoril, Aldactone, Zocor, Lasix, iron, colchicine, Zyrtec, Coreg and aspirin. FAMILY HISTORY: Positive for brain cancer. No history of heart disease or diabetes. SOCIAL HISTORY: The patient stopped smoking cigarettes in 1991. He does not drink alcohol or use any recreational drugs. He is . He most recently was in a rehab facility at [facility]. HOME MEDICATIONS: Coreg, Zocor, iron, Brimonidine ophthalmic solution, Latanoprost eyedrops, Restoril, tramadol, Aldactone, aspirin, colchicine, ferrous sulfate, Lasix and Zyrtec. PHYSICAL EXAMINATION: Vital Signs: Temperature is 98.1 degrees, pulse 56, respirations 20, blood pressure 122/59. This is the patient weighs 249 pounds. General: This is a chronically ill- appearing, elderly male, who is very lethargic. Head, eyes, ears, nose, and throat: He heard my spoken words as evidenced by the fact that I asked him to move his extremities and he did, even though he could barely move them because he was so weak. No drainage is noted from the nose or ears. Neck: No meningismus. Thorax: There was an increased AP diameter to the chest. Lungs: There were bibasilar rales. Cardiovascular: Heart tones were distant. It appeared to me that it was regular, but as I said it was very distant. The patient had bilateral leg edema. Abdomen: Soft and nontender. Neurologic: The patient is lethargic. He did follow requests to move his extremities. There was no tremor. Thank you for the consult.
--- NOTE | 2016-09-23 16:55 | CONSULTATION ---
DATE OF CONSULTATION: 09/23/2016 REQUESTING PHYSICIAN: Dr. Rodríguez. REASON FOR CONSULTATION: Respiratory failure. HISTORY OF PRESENT ILLNESS: Mr. Nielsen is an 86-year-old white male with prior tobacco use, COPD, morbid obesity, noncompliance with treatment for obstructive sleep apnea who was admitted to the hospital earlier this month with anemia. The patient was treated for an AV malformation and transferred to the correction. The patient has had periods of hypersomnolence, presented to the emergency room last evening. The patient was lethargic. Arterial blood gas was performed which revealed pH 7.25, pCO2 of 95, PO2 of 229 on nasal cannula. Head CT was performed which revealed stable changes from prior stroke with left frontal encephalomalacia along with evidence of microvascular disease. PAST MEDICAL HISTORY: 1. Obstructive sleep apnea. The patient did not tolerate CPAP/BiPAP in the past. 2. COPD. 3. Coronary artery disease. 4. Diastolic heart failure. 5. Chronic renal insufficiency. 6. Atrial fibrillation. 7. Hypertension. 8. Dyslipidemia. 9. Type 2 diabetes mellitus. 10. Chronic kidney failure. 11. Arthritis. 12. Prior stroke as per HPI. 13. Chronic hypoxemic respiratory failure. 14. Status post pacemaker/defibrillator placement. 15. Status post appendectomy. 16. Status post cholecystectomy. SOCIAL HISTORY: The patient has a 60 pack year history for tobacco. No alcohol use. FAMILY HISTORY: Noncontributory to current presentation. REVIEW OF SYSTEMS: Limited. PHYSICAL EXAMINATION: General: Reveals a chronically ill-appearing male who is struggling with BiPAP. Vital Signs: BP 94/49, heart rate 21, respiration rate 16, oxygen saturation 98%. HEENT: Pupils are equal and reactive. Oropharynx evaluation is limited. Neck: Supple. Chest: Reveals diminished breath sounds both lung bases. Cardiac Exam: Distant heart sounds. Irregular rhythm. Abdomen: Is obese and soft. Extremities: Reveal some wrinkling of the skin suggesting recent diuresis. LABORATORIES: Arterial blood gas reveals pH 7.29, pCO2 of 83, PO2 of 157. Chemistry. Sodium 146, potassium 3.3, chloride 100, BUN 35, creatinine 2.3, BUN 44. Chest x-ray reveals cardiomegaly, pleural effusions and stable vascular congestion. IMPRESSION: An 86-year-old with chronic hypoxemic respiratory failure who presents with acute on chronic hypoxemic respiratory failure. Respiratory failure is likely multifactorial and related to underlying chronic obstructive pulmonary disease, obstructive sleep apnea, and mild fluid overload. Unfortunately, with renal insufficiency and mild hypotension, he will not likely tolerate diuresis. He clearly has had a downhill clinical course over the last month. His reports he does not want to be placed on mechanical ventilation but he currently is a full code. It is hoped that with cycling BiPAP he will have some clinical improvement. However, this likely be short term if he cannot tolerate nocturnal CPAP/BiPAP. RECOMMENDATION: 1. Continue BiPAP for acute hypercapnic and hypoxemic respiratory failure. Recommend cycling BiPAP if he has clinical improvement. 2. Attempt diuretics if he has improvement in blood pressure. 3. Stool evaluation by the infectious disease service for diarrhea. 4. Recommend palliative care consult to discuss end of life/goals of care. 5. Additional recommendations pending hospital course.
[2016-09-23] MEDS: XALATAN 0.005% OPH SOLN BOTH EYES SCH (21:14)
[2016-09-24] MEDS ORDERED: CALMOSEPTINE OINTMENT TOP PRN (00:26)
[2016-09-24] MEDS: VANCOMYCIN ORAL SOLN PO SCH ×4 (01:44→20:29)
[2016-09-24] MEDS: DUONEB (A & A) INH SCH ×4 (03:54→20:07)
[2016-09-24 04:38] LABS: ALLEN TEST YES; BE 12.3 mmoll (-3.0-3.0); BLOOD TYPE ARTERIAL; DRAW SITE R RADIAL; METHB 1.4 % (0.0-1.5); MODALITY BI PAP; O2(CT) 14.1 mL/dL (15.0-23.0); PCO2(98.6) 46 mmHg (35-45); PO2(98.6) 81 mmHg (60-100); SAMPLE BLOOD; SAO2 99.7 % (95.0-100.0); THB 10.5 g/dL (11.5-17.4); pH(98.6) 7.51 (7.35-7.45)
[2016-09-24 05:13] LABS: BASO% 0.5 % (0.0-0.8); EOS# 0.09 X1000 (0.0-0.7); EOS% 1.4 % (0.0-10.0); HEMATOCRIT 27.4 % (42.0-52.0); HEMOGLOBIN 8.1 g/dL (14.0-18.0); IMM GRAN# 0.02 X1000 (0.0-0.04); IMM GRAN% 0.3 % (0.0-0.5); LYMPH# 0.91 X1000 (1.2-3.4); LYMPH% 13.9 % (20.5-51.1); MANUAL DIFF NEEDED? NO; MCH 26.5 PG (27-31); MCHC 29.6 g/dL (33-37); MCV 89.5 FL (81-99); MONO# 1.02 X1000 (0.11-0.59); MONO% 15.6 % (1.7-9.3); MPV 11.8 FL (7.4-10.4); NEUT% 68.3 % (42.2-75.2); PLT 143 X1000 (130-400); RBC 3.06 XMIL (4.7-6.1)
[2016-09-24 05:26] LABS: CALCIUM 8.1 mg/dL (8.8-10.2); POTASSIUM 3.1 mmol/L (3.5-5.1)
[2016-09-24 05:38] LABS: INR 1.66; PROTIME 17.7 Seconds (9.2-11.7)
[2016-09-24] MEDS: TRUSOPT 2% OPH SOLN BOTH EYES SCH (08:36)
[2016-09-24] MEDS: COREG PO SCH ×2 (08:38→20:29)
[2016-09-24] MEDS: FERROUS SULFATE PO SCH (08:38)
[2016-09-24] MEDS: ALPHAGAN 0.2% OPHTH SOLN BOTH EYES SCH (08:40)
--- NOTE | 2016-09-24 12:44 | PROGRESS NOTE ---
DATE: 09/24/2016 OBJECTIVE: Vital signs: Temperature 97, heart rate 68, respirations 21, blood pressure 108/38, O2 sat on BiPAP 98%. LABORATORY: Sodium 145, potassium 3.1, BUN 46, creatinine 2.3, stable. Glucose 113. Total protein low at 59. Albumin 2.3. The patient continues to have some shortness of breath. Lungs are clear to auscultation. He is having moderate diarrhea. There was dark stool yesterday, and it has changed to brown today, but continues to be frequent and watery. Dr. Nikolay Ocasio saw the patient and started some vancomycin p.o. Recent Clostridium test was negative. He has seen Dr. 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 Hematocrit has dropped to 27.4 this morning. PLAN: Consult Dr. Wilson. Cholestyramine and Lomotil are added. Also, potassium p.o. was started. Lab will be rechecked tomorrow.
[2016-09-24] MEDS: LOMOTIL PO SCH ×2 (12:50→17:02)
[2016-09-24] MEDS: KLOR-CON PO SCH ×2 (12:50→16:22)
--- NOTE | 2016-09-24 18:28 | CONSULTATION ---
DATE OF CONSULTATION: 09/24/2016 REFERRING PHYSICIAN: Roddy Rodríguez MD PRIMARY BROOD HATCHERY MANAGER: Humberto Wilson MD PRIMARY PULMONARY PHYSICIAN: Carlos Alberto Lyman MD PRIMARY SURGICAL AIDES TEACHER: Gabriel Varela MD INDICATION FOR CONSULTATION: Diarrhea. HISTORY OF PRESENT ILLNESS: The patient is a 86-year-old white male who has had diarrhea for the last 3-4 weeks. He presented last admission approximately 4 weeks ago with diarrhea and GI bleed. He underwent EGD on 09/09/2016 that was remarkable for gastric AVMs that were cauterized. He was subsequently discharged to rehab on 09/13/2016. At rehab he continued to have diarrhea. He was transferred back to the hospital on 09/22/2016 with progressive weakness and increased confusion. He continues to have 10+ bowel movements per day. His stool studies are negative for C. difficile but positive for fecal white blood cells. We are asked to participate in his care. PAST MEDICAL HISTORY: 1. Chronic atrial fibrillation. 2. Coronary artery disease. 3. Chronic diastolic heart failure. 4. Hypertension. 5. Peripheral artery disease. 6. Diabetes 2. 7. Stage 3 kidney disease. 8. Gout. 9. History of hemorrhagic stroke with residual dementia. 10. Obstructive sleep apnea. 11. Morbid obesity. PAST SURGICAL HISTORY: 1. Coronary artery bypass surgery x2. 2. Pacemaker defibrillator placement. 3. Carotid endarterectomy on the right. 4. Appendectomy. 5. Cholecystectomy. FAMILY HISTORY: The patient was an only child. His mother from brain cancer. SOCIAL HISTORY: The patient previously smoked and stopped in 1991. His family denies alcohol or recreational drug use. He is and was previously residing at [facility] prior to this admission. REVIEW OF SYSTEMS: Remarkable in that the patient states that his stomach is sore but is very limited otherwise. PHYSICAL EXAM: General: He is in no acute distress. Vital Signs: His blood pressure is 113/42, pulse 69, respiration 21, temperature of 97.0 degrees. HEENT: Negative for jaundice. His conjunctivae are pink. Neck supple. His oropharyngeal mucosa is slightly dry. Pulmonary: He is clear to auscultation anteriorly. There are decreased breath sounds in the bases with scattered wheezes in the posterior aspect of his lung base. He has decreased breath sounds in the bases bilaterally. Cardiovascular: Reveals regular rate and rhythm with no gallops, murmurs or rubs. Abdomen: Reveals hypoactive bowel sounds. The abdomen is soft with mild epigastric tenderness. Is protuberant but no rebound or guarding. Extremities: Remarkable for 1+ pitting edema. He has decreased peripheral pulses. OBJECTIVE DATA: Remarkable for a hemoglobin of 8.1 with hematocrit of 27.4 and a white count of 6.54. Has 143,000 platelets. His PT is 17.7 with an INR of 1.66. His blood gases 7.51 with a pCO2 of 46 and PO2 of 81 on 30% FiO2 on BiPAP. Sodium is 145, potassium 4.1, chloride 101, CO2 33, BUN 46, creatinine 2.3 with a glucose of 113. Calcium is 8.1, magnesium 2.0. IMPRESSION: 1. Diarrhea. 2. Iron deficiency anemia. 3. 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 4. Epigastric tenderness . RECOMMENDATION: 1. In light of the refractory diarrhea I would check stool electrolytes and a lactoferrin level. 2. Continue Welchol. 3. He had a recent GI bleed and is not currently receiving PPI therapy. I would begin Protonix 40 mg IV q.12 hours. I would also begin Carafate 1 g 4 times a day but limited the therapy to 6 weeks in light of his chronic kidney disease. 4. Continue the Lomotil as you are doing. 5. The patient may require repeat EGD plus or minus a flexible sigmoidoscopy to determine the cause of his diarrhea. Dr. Wilson returns on Monday. I will defer to him regarding any endoscopic intervention at this time. 6. Additional recommendations to follow based on his clinical course.
[2016-09-24] MEDS: PROTONIX IV SCH (20:27)
[2016-09-24] MEDS: XALATAN 0.005% OPH SOLN BOTH EYES SCH (20:28)
[2016-09-24] MEDS: SODIUM CHLORIDE 0.9% INJ SCH (20:28)
[2016-09-24] MEDS: WELCHOL PO SCH (20:29)
[2016-09-25] MEDS: VANCOMYCIN ORAL SOLN PO SCH ×4 (03:27→20:40)
[2016-09-25] MEDS: DUONEB (A & A) INH SCH ×4 (04:15→22:51)
[2016-09-25] MEDS: SODIUM CHLORIDE 0.9% INJ SCH (05:24)
[2016-09-25] MEDS: PROTONIX IV SCH ×2 (05:25→17:37)
[2016-09-25 05:41] LABS: BASO% 0.8 % (0.0-0.8); EOS# 0.13 X1000 (0.0-0.7); HEMATOCRIT 28.7 % (42.0-52.0); HEMOGLOBIN 8.6 g/dL (14.0-18.0); IMM GRAN# 0.04 X1000 (0.0-0.04); IMM GRAN% 0.6 % (0.0-0.5); LYMPH# 1.03 X1000 (1.2-3.4); LYMPH% 16.2 % (20.5-51.1); MANUAL DIFF NEEDED? NO; MCH 26.9 PG (27-31); MCV 89.7 FL (81-99); MONO# 0.96 X1000 (0.11-0.59); MONO% 15.1 % (1.7-9.3); MPV 11.1 FL (7.4-10.4); NEUT% 65.3 % (42.2-75.2); PLT 130 X1000 (130-400)
[2016-09-25] MEDS: COREG PO SCH ×2 (08:26→20:40)
[2016-09-25] MEDS: KLOR-CON PO SCH ×3 (08:26→16:28)
[2016-09-25] MEDS: WELCHOL PO SCH ×2 (08:26→20:40)
[2016-09-25] MEDS: ALPHAGAN 0.2% OPHTH SOLN BOTH EYES SCH (08:26)
[2016-09-25] MEDS: TRUSOPT 2% OPH SOLN BOTH EYES SCH (08:26)
[2016-09-25] MEDS: LOMOTIL PO SCH ×3 (08:26→16:28)
--- NOTE | 2016-09-25 08:58 | PROGRESS NOTE ---
DATE: 09/25/2016 VITAL SIGNS: Stable with temperature 98.5 degrees, heart rate 76, respirations 24, blood pressure 97/51, O2 saturation 100% on 4 L nasal oxygen. LABORATORY: Hemoglobin 8.6, hematocrit 28.7, white blood count 6,400 with 65% neutrophils. SUBJECTIVE: He is feeling better with less shortness of breath, on nasal oxygen. There has been no diarrhea since last evening. Apparently the Welchol and Lomotil helped. PLAN: Transfer to medical floor. Repeat lab in the morning.
[2016-09-25] MEDS: XALATAN 0.005% OPH SOLN BOTH EYES SCH (21:46)
[2016-09-26] MEDS: VANCOMYCIN ORAL SOLN PO SCH (02:31)
[2016-09-26] MEDS: DUONEB (A & A) INH SCH ×4 (03:38→23:37)
[2016-09-26 04:59] LABS: ALLEN TEST YES; BLOOD TYPE ARTERIAL; DRAW SITE R RADIAL; PCO2(98.6) 45 mmHg (35-45); SAMPLE BLOOD
[2016-09-26 05:12] LABS: BE 13.6 mmoll (-3.0-3.0); METHB 1.9 % (0.0-1.5); O2(CT) 11.5 mL/dL (15.0-23.0); PO2(98.6) 81 mmHg (60-100); SAO2 99.1 % (95.0-100.0); THB 8.5 g/dL (11.5-17.4); pH(98.6) 7.53 (7.35-7.45)
[2016-09-26 05:13] LABS: MODALITY BI PAP
[2016-09-26 05:29] LABS: BASO% 0.5 % (0.0-0.8); EOS# 0.12 X1000 (0.0-0.7); EOS% 1.9 % (0.0-10.0); HEMATOCRIT 29.9 % (42.0-52.0); IMM GRAN# 0.02 X1000 (0.0-0.04); IMM GRAN% 0.3 % (0.0-0.5); LYMPH# 0.88 X1000 (1.2-3.4); LYMPH% 13.9 % (20.5-51.1); MANUAL DIFF NEEDED? NO; MCH 27.1 PG (27-31); MCHC 30.1 g/dL (33-37); MCV 90.1 FL (81-99); MONO# 1.09 X1000 (0.11-0.59); MONO% 17.2 % (1.7-9.3); MPV 11.6 FL (7.4-10.4); NEUT% 66.2 % (42.2-75.2); PLT 115 X1000 (130-400); RBC 3.32 XMIL (4.7-6.1)
[2016-09-26 05:47] LABS: POTASSIUM 4.3 mmol/L (3.5-5.1)
[2016-09-26] MEDS: PROTONIX IV SCH (05:56)
[2016-09-26] MEDS: SODIUM CHLORIDE 0.9% INJ SCH (05:56)
--- NOTE | 2016-09-26 06:48 | PROGRESS NOTE ---
DATE: 09/26/2016 CONCLUSION: The patient was admitted with GI bleeding. He also has had diarrhea since starting Lomotil. The patient's diarrhea has cleared. In fact, he is not having any stool at all now. MEDICATION: The patient is receiving Lomotil and vancomycin p.o. PHYSICAL EXAMINATION: Vital Signs: Temperature is 96.8, pulse 84, respirations 18, blood pressure 108/57. General: This gentleman appears much better than he was when I saw him at the end of last week. He is awake. He is oriented as to time, place and person. He follows request to move his extremities. Lungs: Clear to auscultation. Chest: The patient has a combined pacemaker/defibrillator in the left chest area. The area is not swollen or erythematous. Cardiovascular: Regular heart rate. Abdomen: Soft and nontender. Neurologic: Patient is awake. He is oriented as to time, place, and person. He moved his extremities to request. There was no tremor. LAB AND X-RAY: Patient's CBC for today shows a white count of 6320, hemoglobin 9, platelet count 115,000. Patient's blood gases show a pH of 7.53, a pO2 of 81, a pCO2 of 45. Creatinine is 1.9. The GFR is 34. Stool for Clostridium difficile, O and P and [employer] was negative. ASSESSMENT AND PLAN: The patient's diarrhea appears to have stopped, most likely due to Lomotil. At this time, I do not think that he has an infectious cause of his diarrhea. I have stopped the patient's vancomycin. At this time, I am not going to add any other antibiotic. I am available to see the patient on a p.r.n. basis. COMORBIDITIES: Include the fact that he is very elderly. He also has diabetes mellitus.
[2016-09-26] MEDS: WELCHOL PO SCH ×2 (09:07→22:08)
[2016-09-26] MEDS: COREG PO SCH ×2 (09:07→22:08)
[2016-09-26] MEDS: TRUSOPT 2% OPH SOLN BOTH EYES SCH (09:11)
[2016-09-26] MEDS: ALPHAGAN 0.2% OPHTH SOLN BOTH EYES SCH (09:12)
[2016-09-26] MEDS: LOMOTIL PO SCH ×3 (11:39→17:44)
[2016-09-26] MEDS: XALATAN 0.005% OPH SOLN BOTH EYES SCH (22:09)
[2016-09-27] MEDS ORDERED: RESTORIL PO ONE (01:42)
[2016-09-27] MEDS: DUONEB (A & A) INH SCH ×4 (03:50→23:10)
[2016-09-27 04:45] LABS: ALLEN TEST YES; BE 12.5 mmoll (-3.0-3.0); BLOOD TYPE ARTERIAL; DRAW SITE R RADIAL; METHB 1.4 % (0.0-1.5); O2(CT) 11.1 mL/dL (15.0-23.0); PO2(98.6) 86 mmHg (60-100); SAMPLE BLOOD; THB 8.2 g/dL (11.5-17.4); pH(98.6) 7.41 (7.35-7.45)
[2016-09-27 04:48] LABS: MODALITY CANNULA; PCO2(98.6) 61 mmHg (35-45)
[2016-09-27] MEDS: PROTONIX IV SCH ×2 (05:50→06:10)
[2016-09-27] MEDS: SODIUM CHLORIDE 0.9% INJ SCH (05:50)
[2016-09-27 06:08] LABS: BASO% 0.2 % (0.0-0.8); EOS# 0.05 X1000 (0.0-0.7); EOS% 0.6 % (0.0-10.0); HEMOGLOBIN 8.1 g/dL (14.0-18.0); IMM GRAN# 0.02 X1000 (0.0-0.04); IMM GRAN% 0.2 % (0.0-0.5); LYMPH# 1.03 X1000 (1.2-3.4); LYMPH% 12.6 % (20.5-51.1); MANUAL DIFF NEEDED? YES; MCH 26.6 PG (27-31); MCHC 28.9 g/dL (33-37); MCV 91.8 FL (81-99); MONO% 14.7 % (1.7-9.3); MPV 11.2 FL (7.4-10.4); NEUT% 71.7 % (42.2-75.2); PLT 114 X1000 (130-400); RBC 3.05 XMIL (4.7-6.1)
[2016-09-27 06:11] LABS: CALCIUM 8.3 mg/dL (8.8-10.2); POTASSIUM 4.7 mmol/L (3.5-5.1)
[2016-09-27 07:04] LABS: BANDS 1 % (0-1); EOS 1 % (1-10); LYMPHS 11 % (21-51); MONO 13 % (1-9); POLYCHROM OCCASIONAL
[2016-09-27] MEDS ORDERED: LOMOTIL PO PRN (11:14)
[2016-09-27] MEDS: WELCHOL PO SCH ×4 (11:18→20:24)
[2016-09-27] MEDS: COREG PO SCH ×4 (11:19→20:24)
[2016-09-27] MEDS: TRUSOPT 2% OPH SOLN BOTH EYES SCH (11:20)
[2016-09-27] MEDS: ALPHAGAN 0.2% OPHTH SOLN BOTH EYES SCH (11:20)
--- NOTE | 2016-09-27 15:02 | PROGRESS NOTE ---
DATE: 09/27/2016 SUBJECTIVE: Patient is asleep. I have spoken with his . OBJECTIVE: No acute distress noted.Respiratory: Essentially clear. Abdomen: Soft, nontender, positive bowel sounds. Vital Signs: Temperature 98.2 degrees, pulse 89, respirations 16, blood pressure 115/57. The patient has not had a bowel movement. Last one recorded was on 09/23/2016 so no active bleeding noted. LABORATORY: Hematology count 8.19, hemoglobin 8.1, hematocrit 28.0, MCV 91.8, platelet 114,000. Chemistry: Sodium 138, potassium 4.7, chloride 97, CO2 of 34, BUN 42, creatinine 2.1. ASSESSMENT AND PLAN: 1. Anemia. 2. Diarrhea. That has currently resolved. We will hold Lomotil and use only as needed. Continue Welchol for now. No active bleeding noted. We are waiting on a stool test to check for stool electrolytes and lactoferrin. Patient has not had a stool since the so this has not been collected. Continue to monitor hemoglobin and hematocrit. Monitor for any active bleeding. The patient had a EGD during his last hospitalization that showed bleeding AVMs in the stomach that were cauterized. Further plans will be made according to his symptoms and will follow for any active bleeding. Further plans to be made as needed. Dictated by VALENTINA Zepeda for Humberto Wilson MD
[2016-09-27] MEDS: XALATAN 0.005% OPH SOLN BOTH EYES SCH (20:24)
[2016-09-28] MEDS: DUONEB (A & A) INH SCH ×4 (04:07→22:30)
[2016-09-28 05:01] LABS: ALLEN TEST YES; BE 12.4 mmoll (-3.0-3.0); BLOOD TYPE ARTERIAL; DRAW SITE R RADIAL; METHB 1.8 % (0.0-1.5); O2(CT) 10.6 mL/dL (15.0-23.0); PO2(98.6) 92 mmHg (60-100); SAMPLE BLOOD; SAO2 99.3 % (95.0-100.0); THB 7.8 g/dL (11.5-17.4); pH(98.6) 7.36 (7.35-7.45)
[2016-09-28 05:03] LABS: MODALITY CANNULA; PCO2(98.6) 70 mmHg (35-45)
[2016-09-28] MEDS: PROTONIX IV SCH (06:13)
[2016-09-28] MEDS: SODIUM CHLORIDE 0.9% INJ SCH (06:13)
[2016-09-28 06:45] LABS: CALCIUM 8.3 mg/dL (8.8-10.2); POTASSIUM 4.3 mmol/L (3.5-5.1)
[2016-09-28 06:48] LABS: BASO% 0.3 % (0.0-0.8); EOS# 0.07 X1000 (0.0-0.7); EOS% 1.1 % (0.0-10.0); HEMATOCRIT 27.9 % (42.0-52.0); IMM GRAN# 0.03 X1000 (0.0-0.04); IMM GRAN% 0.5 % (0.0-0.5); LYMPH# 0.86 X1000 (1.2-3.4); MANUAL DIFF NEEDED? NO; MCH 26.4 PG (27-31); MCHC 28.7 g/dL (33-37); MCV 92.1 FL (81-99); MONO# 0.83 X1000 (0.11-0.59); MONO% 13.5 % (1.7-9.3); MPV 11.6 FL (7.4-10.4); NEUT% 70.6 % (42.2-75.2); PLT 113 X1000 (130-400); RBC 3.03 XMIL (4.7-6.1)
[2016-09-28] MEDS ORDERED: PRILOSEC PO SCH (07:00)
[2016-09-28] MEDS: ALPHAGAN 0.2% OPHTH SOLN BOTH EYES SCH (10:46)
[2016-09-28] MEDS: TRUSOPT 2% OPH SOLN BOTH EYES SCH (10:46)
[2016-09-28] MEDS: WELCHOL PO SCH ×2 (10:48→20:34)
[2016-09-28] MEDS: COREG PO SCH ×2 (10:48→20:34)
--- NOTE | 2016-09-28 15:07 | PROGRESS NOTE ---
DATE: 09/28/2016 SUBJECTIVE: The patient denies complaints today. He states he feels better. OBJECTIVE: He is more awake and alert today and in no acute distress.Respiratory: Lung sounds essentially clear. Abdomen: Obese but soft with positive bowel sounds. He has not had a bowel movement since the . No evidence of active bleeding. Vital Signs: Temperature 98.6 degrees, pulse 65, respirations 16, blood pressure 117/63. LABORATORY: Hematology: White count 6.13, hemoglobin 8.0, hematocrit 27.9, MCV 92.1, platelets 113,000. Chemistry: Sodium 134, potassium 4.3, chloride 94, CO2 of 34, BUN 40, creatinine 1.8. Glucose 124. ASSESSMENT: 1. Diarrhea has resolved. 2. Anemia. 3. No evidence of active bleeding. PLAN: Continue supportive care. Continue medications, IV fluids. The diarrhea has stopped. Lomotil was changed to p.r.n. Continued on Welchol. No evidence of active bleeding. We will continue to follow and further plans will be made if needed. I have discussed this case with Dr. Wilson. Dictated by VALENTINA Zepeda for Humberto Wilson MD
[2016-09-28] MEDS: XALATAN 0.005% OPH SOLN BOTH EYES SCH (20:35)
[2016-09-28] MEDS ORDERED: RESTORIL PO PRN (21:00)
[2016-09-29] MEDS: DUONEB (A & A) INH SCH ×2 (02:35→09:55)
--- NOTE | 2016-09-29 07:41 | DISCHARGE SUMMARY ---
ADMISSION DATE: 09/22/2016 DISCHARGE DATE: 09/29/2016 DISCHARGE DIAGNOSES: 1. Metabolic encephalopathy secondary to hypercapnia and uremia. 2. [id number] respiratory failure. 3. Chronic obstructive pulmonary disease. 4. Stable chronic diastolic congestive heart failure. 5. Chronic atrial fibrillation. 6. Coronary artery disease. 7. Type 2 diabetes mellitus. 8. Stage 3 chronic kidney disease. 9. Morbid obesity. 10. Anemia secondary to recent gastrointestinal blood loss that was secondary to gastric arteriovenous malformation. HOSPITAL COURSE: Mr. Eduardo Nielsen is an 86-year-old gentleman who was brought into the hospital with progressively worsening weakness along with confusion of 3-4 days' duration. He was noted to have metabolic encephalopathy with elevated pCO2 and BUN/creatinine. He was therefore admitted to the hospital for further evaluation and care. Here in the hospital, we obtained a Cardiology and Pulmonary along with Nephrology consultations, who were actively involved in the care of this patient during this hospital admission. He was initially given some IV fluids and his diuretics have been held. He was also having diarrhea for which a GI consultation was obtained with Dr. Wilson. Patient was given Welchol, with which his diarrhea has resolved. He also receives Lomotil initially but that has been discontinued. The patient's encephalopathy improved after we gave him some IV fluids and treated his hypercapnia with BiPAP. The patient had not been wearing any BiPAP for the past 3 days and really does not wish to wear it at this point. His respiratory failure has also improved and he has been in overall stable condition. For the past 2-3 days. He does have anemia but that has been now stable. We are going to therefore discharge him to rehab. He is having generalized weakness and has not been able to stand on his feet because of that. Therefore, he might need a lengthy rehabilitation process. DISCHARGE MEDICATIONS: 1. Albuterol and Atrovent nebulization treatments every 6 hours. 2. Carvedilol 6.25 mg orally twice daily. 3. Welchol 625 mg orally twice daily. 4. Omeprazole 40 mg orally once daily in the morning. 5. Ferrous sulfate 325 mg orally twice daily. 6. Simvastatin 20 mg orally once daily at bedtime. 7. Tramadol 50 mg orally 3 times a day as needed for pain. 8. Temazepam 15 mg orally once daily at bedtime as needed for insomnia. 9. Brimonidine 0.2% ophthalmic solution 1 drop to each eye once daily. 10. Latanoprost 0.005% ophthalmic solution 1 drop in each eye once daily at bedtime. 11. Dorzolamide 2% ophthalmic solution, 1 drop to each eye once daily. FOLLOWUP: He will follow up with me at the office once he is discharged from rehab. CONDITION: Stable. DISPOSITION: Rehab facility. TIME SPENT: A total of more than 40 minutes were spent during the discharge process. [facility]
[2016-09-29 08:15] VITALS: BP 106/50
[2016-09-29] MEDS: WELCHOL PO SCH (08:48)
[2016-09-29] MEDS: COREG PO SCH (08:48)
[2016-09-29] MEDS: ALPHAGAN 0.2% OPHTH SOLN BOTH EYES SCH (10:10)
[2016-09-29] MEDS: TRUSOPT 2% OPH SOLN BOTH EYES SCH (10:11)
== END 2016-09-29 10:56 | DRG 189 ==
LOC: EDBD → EDUNIT# → ED 16:35 → 3S 22:20 → 4N 09-26 11:57
PROVIDERS: ADMIT Internal Medicine; ATTEND Internal Medicine
DX: J96.22 Acute and chronic respiratory failure with hypercapnia (principal); I62.9 Nontraumatic intracranial hemorrhage, unspecified; G93.41 Metabolic encephalopathy; N17.9 Acute kidney failure, unspecified; K52.1 Toxic gastroenteritis and colitis; D68.9 Coagulation defect, unspecified; N18.3 Chronic kidney disease, stage 3 (moderate); F03.90 Unspecified dementia, unspecified severity, without behavioral disturbance, psychotic disturbance, mood disturbance, and anxiety; I13.0 Hypertensive heart and chronic kidney disease with heart failure and stage 1 through stage 4 chronic kidney disease, or unspecified chronic kidney disease; I50.32 Chronic diastolic (congestive) heart failure; E11.22 Type 2 diabetes mellitus with diabetic chronic kidney disease; J96.21 Acute and chronic respiratory failure with hypoxia; E11.51 Type 2 diabetes mellitus with diabetic peripheral angiopathy without gangrene; E86.0 Dehydration; T47.6X5A Adverse effect of antidiarrheal drugs, initial encounter; E66.01 Morbid (severe) obesity due to excess calories; J44.9 Chronic obstructive pulmonary disease, unspecified; I48.2 Chronic atrial fibrillation; I25.10 Atherosclerotic heart disease of native coronary artery without angina pectoris; M10.9 Gout, unspecified; D50.0 Iron deficiency anemia secondary to blood loss (chronic); E78.5 Hyperlipidemia, unspecified; Z66 Do not resuscitate; M19.90 Unspecified osteoarthritis, unspecified site; Z68.37 Body mass index [BMI] 37.0-37.9, adult; G47.33 Obstructive sleep apnea (adult) (pediatric); Z86.718 Personal history of other venous thrombosis and embolism; Z95.5 Presence of coronary angioplasty implant and graft; Z95.810 Presence of automatic (implantable) cardiac defibrillator; Z95.1 Presence of aortocoronary bypass graft; Z80.8 Family history of malignant neoplasm of other organs or systems; Z87.891 Personal history of nicotine dependence; Z79.899 Other long term (current) drug therapy; Z79.82 Long term (current) use of aspirin; R41.89 Other symptoms and signs involving cognitive functions and awareness
CPT/HCPCS: 51702; 70450; 71010; 80048; 80053; 81001; 82550; 82570; 82607; 82728; 82746; 82805; 82948; 83036; 83540; 83605; 83735; 84300; 84443; 84484; 85025; 85610; 85730; 87045; 87046; 87177; 87324; 88313; 93005; 94640; 94660; 94761; 96374; C9113; G0480; J1940; J3430; J7040; 80320; 80324; 80345; 80346; 80349; 80353; 80358; 80361; 80365; 83992; 97110-GP; 97116-GP; 97530-GP; S0164